=== PATIENT | female | born 2005 | race Two or more races ===

== ENCOUNTER 2025-05-08 13:37 | Emergency (ER) | payer OTHER, SELFPAY ==
--- OUTSIDE RECORDS SUMMARY | 2025-05-08 13:39 | XMS REPORT | Continuity of Care Document ---
Author Name Unknown Address [address] [place] [address] [facility] Address [address] [place] [address] Care Team Providers Care Entertainment Production Professional Name Role Phone WILLEM MANCIA Attending Clinician UnavailKHARI Muller Attending Clinician Unavailable Payers Payer Name Policy Type Policy Number Effective Date Expirati on Date Source [facility] [id number] 2019 00:00:00 Allergies, Adverse Reactions, Alerts Allergy Name Allergy Type Status Severity Reaction(s) Onset Date Inactive Date Treating Clinician Comments Source NO KNOWN ALLERGIE S Drug Class Active [facility] Encounters Start Date/Time End Date/Time Encounter Type Admission Type Attending Clinicians Care Facility Care Department Encounter ID Source 2021-04-30 11:40:00 2021-04-30 11:40:00 Outpatient WILLEM STRONG [facility] [id number] [facility] 2020-10-13 15:40:00 2020-10-13 15:40:00 Outpatient KHARI GLOVER [facility] [id number] [facility]
--- NOTE | 2025-05-08 14:34 | RAD REPORT ---
EXAM: Chest Single View HISTORY: 19 years Female COUGH COMPARISON: No prior exams FINDINGS: LUNGS/PLEURA: The lungs are clear. No pleural effusions or pneumothorax. No pulmonary edema. Breast p rostheses. CARDIAC/MEDIASTINUM: The cardiac silhouette is within normal limits. UPPER ABDOMEN: No significant abnormality. BONES: No acute abnormality. LINES/TUBES/OTHER: N/A IMPRESSION: No evidence of acute cardiopulmonary disease.
[2025-05-08 15:26] LABS: Influenza A Ag Negative; Influenza B Ag Negative; SARS-CoV-2 Antigen Rapid Res Negative (Negative)
--- NOTE | 2025-05-08 16:21 | EDPHYS ---
Physician Documentation [facility] Name: Florentin Arce Age: 19 yrs Sex: Female : 2005 Arrival Date: 05/08/2025 Time: 13:37 Bed 10 Private MD: ED Physician Jose Maria Hunter HPI: 05/08 16:11 This 19 yrs old Female presents to ER via Ambulatory with complaints of Flu Symptoms, rn Eye Problem. 16:11 Patient reports sick for a week, getting better overall but still having cough and now rn having redness and drainage of right eye. Family member sick recently as well. Family member has improved without antibiotics. Denies shortness of breath. No abdominal pain.. 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 - Infectious Disease History:: Denies. - Social history:: Smoking status: Patient denies any tobacco usage or history of. - Family history:: not pertinent. - Hospitalizations: : No recent hospitalization is reported. ROS: 16:11 Constitutional: Negative for fever, chills, and weight loss, Cardiovascular: Negative rn for chest pain, palpitations, and edema, Respiratory: Positive for cough, negative for shortness of breath Abdomen/GI: Negative for abdominal pain, nausea, vomiting, diarrhea, and constipation, MS/Extremity: Negative for injury and deformity, Skin: Negative for injury, rash, and discoloration, Neuro: Negative for headache, weakness, numbness, tingling, and seizure, Exam: 16:11 Constitutional: This is a well developed, well nourished patient who is awake, alert, rn and in no acute distress. Head/Face: Normocephalic, atraumatic. ENT: Mild pharyngeal erythema, no stridor Neck: Trachea midline, no masses palpated, and no cervical lymphadenopathy. Supple, full range of motion without nuchal rigidity, or vertebral point tenderness. No Meningismus. Respiratory: Speaking full sentences, unlabored Vital Signs: 14:01 BP 118 / 60; Pulse 76; Resp 14; Temp 98.5(O); Pulse Ox 100% on R/A; Weight 74.84 kg; ss Height 5 ft. 2 in. ; Pain 1/10; 16:08 BP 112 / 66; Pulse 65; Resp 18; Pulse Ox 98% on R/A; kj2 16:45 BP 114 / 64; Pulse 68; Resp 20; Temp 98; Pulse Ox 100% on R/A; kj2 14:01 Body Mass Index 30.18 (74.84 kg, 157.48 cm) ss 14:01 Pain Scale: Adult ss MDM: 13:43 Medical Screening Exam initiated rn 16:11 Differential diagnosis: Conjunctivitis, viral illness. Data reviewed: vital signs, rn nurses notes, lab test result(s), radiologic studies, plain films, and as a result, I will discharge patient. Independent interpretation of the following test(s) in the Emergency Department X-Ray: My interpretation is Chest x-ray images negative for pneumonia or pneumothorax per my interpretation. Counseling: I had a detailed discussion with the patient and/or guardian regarding the historical points, exam findings, and any diagnostic results supporting the discharge/admit diagnosis, lab results, radiology results, the need for outpatient follow up, to return to the emergency department if symptoms worsen or persist or if there are any questions or concerns that arise at home. Special discussion: I discussed with the patient/guardian in detail that at this point there is no indication for admission to the hospital. It is understood, however, that if the symptoms persist or worsen the patient needs to return immediately for re-evaluation. 16:11 ED course: Most likely viral illness given sick contact and sick contact improved rn without antibiotics. Patient overall better with negative chest x-ray. Will discharge home and no indication for antibiotics at this time.. 05/08 14:15 Order name: COVID-19 Ag + Flu A+B Ag; Complete Time: 15:56 rn 05/08 14:15 Order name: Group A Streptococcus Rapid; Complete Time: 15:56 rn 05/08 15:12 Order name: Throat Culture EDOR 05/08 14:15 Order name: XRAY Chest (1 view); Complete Time: 14:48 rn Administered Medications: No medications were administered Disposition Summary: 05/08/25 16:20 Discharge Ordered Notes: Location: Home rn Problem: new rn Symptoms: have improved rn Condition: Stable rn Diagnosis - Cough rn - Other acute conjunctivitis rn Followup: rn - With: Private Physician - When: As needed - Reason: Recheck today's complaints, Re-evaluation by your physician Discharge Instructions: - Discharge Summary Sheet rn - Bacterial Conjunctivitis, Adult rn - Viral Conjunctivitis, Adult rn - Cough, Adult rn Forms: - Medication Reconciliation Form rn - Antibiotic production internship - Prescription Opioid Use rn - Patient Portal Instructions rn - Leadership Thank You Letter rn Prescriptions: - Vigamox 0.5 % Ophthalmic Drops - instill 1 drop OPHTHALMIC route every 8 hours for 7 days; 5 milliliter; rn Refills: 0, Product Selection Permitted Signatures: Dispatcher [employer] EDMS Jose Maria Hunter MD MD rn Blanchard, Shelby, RN RN Philly Moise RN RN kj2
--- NOTE | 2025-05-08 16:21 | ER ---
Nurse's Notes [facility] Name: Florentin Arce Age: 19 yrs Sex: Female : 2005 Arrival Date: 05/08/2025 Time: 13:37 Bed 10 Private MD: Diagnosis: Cough;Other acute conjunctivitis Presentation: 05/08 14:01 Chief complaint: Patient states: sore neck, body aches that began 9 days ago, turned ss into cough and congestion and now drainage to R eye that began yesterday. Denies sore neck and body aches at this time. Family member reports having similar symptoms last week. Coronavirus screen: Client denies travel out of the [place] in the last 14 days. Ebola Screen: Patient denies exposure to infectious person. Patient denies travel to an Ebola-affected area in the 21 days before illness onset. Initial Sepsis Screen: Does the patient meet any 2 criteria? No. Patient's initial sepsis screen is negative. Does the patient have a suspected source of infection? No. Patient's initial sepsis screen is negative. Risk Assessment: Do you want to hurt yourself or someone else? Patient reports no desire to harm self or others. Onset of symptoms was April 29, 2025. 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 - Infectious Disease History:: Denies. - Social history:: Smoking status: Patient denies any tobacco usage or history of. - Family history:: not pertinent. - Hospitalizations: : No recent hospitalization is reported. Screenin:30 [facility] ED Fall Risk Assessment (Adult) History of falling in the last 3 months, kj2 including since admission No falls in past 3 months (0 pts) Confusion or Disorientation No (0 pts) Intoxicated or Sedated No (0 pts) Impaired Gait No (0 pts) Mobility Assist Device Used No (0 pt) Altered Elimination No (0 pt) Score/Fall Risk Level 0 - 2 = Low Risk Maintained a safe environment, Hourly rounding (assess needs \T\ fall precautionary measures) done. Abuse screen: Denies threats or abuse. Denies injuries from another. Nutritional screening: No deficits noted. Tuberculosis screening: No symptoms or risk factors identified. Assessment: 14:30 General: Appears in no apparent distress. Behavior is cooperative. Pain: Complains of kj2 pain in general body Pain currently is 5 out of 10 on a pain scale. Neuro: Level of Consciousness is awake, alert, obeys commands, Oriented to person, place, time, situation. Cardiovascular: Patient's skin is warm and dry. Respiratory: Airway is patent Respiratory effort is unlabored. GI: No signs and/or symptoms were reported involving the gastrointestinal system. : No signs and/or symptoms were reported regarding the genitourinary system. 15:30 Reassessment: Patient appears in no apparent distress at this time. Patient and/or kj2 family updated on plan of care and expected duration. Pain level reassessed. Patient is alert, oriented x 3, equal unlabored respirations, skin warm/dry/pink. 16:30 Reassessment: Patient appears in no apparent distress at this time. Patient and/or kj2 family updated on plan of care and expected duration. Pain level reassessed. Patient is alert, oriented x 3, equal unlabored respirations, skin warm/dry/pink. Vital Signs: 14:01 BP 118 / 60; Pulse 76; Resp 14; Temp 98.5(O); Pulse Ox 100% on R/A; Weight 74.84 kg; ss Height 5 ft. 2 in. ; Pain 1/10; 16:08 BP 112 / 66; Pulse 65; Resp 18; Pulse Ox 98% on R/A; kj2 16:45 BP 114 / 64; Pulse 68; Resp 20; Temp 98; Pulse Ox 100% on R/A; kj2 14:01 Body Mass Index 30.18 (74.84 kg, 157.48 cm) ss 14:01 Pain Scale: Adult ss ED Course: 13:40 Patient arrived in ED. al6 13:43 Jose Maria Hunter MD is Attending Physician. rn 14:03 Triage completed. ss 14:03 Arm band placed on right wrist. ss 14:27 XRAY Chest (1 view) In Process Unspecified. EDMS 14:30 Patient has correct armband on for positive identification. Bed in low position. Call kj2 light in reach. Provided Education on: call light. 14:39 Philly Johnson, RN is Primary Nurse. kj2 14:39 Group A Streptococcus Rapid Sent. kj2 14:39 COVID-19 Ag + Flu A+B Ag Sent. kj2 16:54 No provider procedures requiring assistance completed. Patient did not have IV access kj2 during this emergency room visit. Administered Medications: No medications were administered Medication: 16:54 VIS not applicable for this client. kj2 Outcome: 16:20 Discharge ordered by . rn 16:55 Discharged to home ambulatory, with family, kj2 16:55 Condition: stable 16:55 Discharge instructions given to patient, Instructed on discharge instructions, follow up and referral plans. Demonstrated understanding of instructions, follow-up care, 16:58 Patient left the ED. kj2 Signatures: Dispatcher [employer] EDMS Jose Maria Hunter MD MD rn Blanchard, Shelby, RN RN Philly Johnson, JASMYN RN kj2 Norma Murillo6
[2025-05-08 21:51] VITALS: BP 114/64; TEMP 98; O2SAT 100
== END 2025-05-08 16:58 | disposition home or self-care (01) ==
LOC: ER 13:37
DX: R05.9 Cough, unspecified (principal); H10.31 Unspecified acute conjunctivitis, right eye; Z11.52 Encounter for screening for COVID-19
CPT/HCPCS: 36415; 71045; 87070; 87428; 99283